=== PATIENT | female | born 1955 | race Caucasian/White ===

== ENCOUNTER 2016-11-13 18:36 | Emergency (ER) | payer MEDICARE, OTHER ==
[2016-11-13 19:51] LABS: BASOPHIL 0.4 % (0-2); EOSINOPHIL 2.2 % (0-5); HCT 36.7 % (37.0-47.0); HGB 12.4 g/dl (12.5-16.0); LYMPHOCYTE 23.6 % (15-48); MCH 29.7 pg (25.0-31.0); MCHC 33.8 g/dL (32.0-36.0); MONOCYTE 7.9 % (0-12); MPV 9.6 fL (6.0-9.5); NEUTROPHIL 65.9 % (41-80); PLT 269 K/uL (150-400); RBC 4.17 M/uL (4.20-5.40); RDW 14.5 % (11.5-14.0); WBC 8.4 K/uL (4.0-10.5)
[2016-11-13 20:12] LABS: INR 1.26 (0.9-1.2); PROTHROMBIN TIME 15.4 SECONDS (11.7-14.0); PTT 30.6 SECONDS (23.2-31.4)
[2016-11-13 20:13] LABS: D-DIMER 1.53 ug/mLFEU (0.00-0.41)
[2016-11-13 20:21] LABS: ALBUMIN 4.2 g/dL (3.5-5.0); BILIRUBIN - TOTAL 0.2 mg/dL (0.1-1.0); CREATININE 1.2 mg/dL (0.5-1.0); GLOBULIN (CALCULATION) 2.5 g/dL (2.2-4.2); MAGNESIUM 1.9 mg/dL (1.40-2.10); TOTAL PROTEIN 6.7 g/dL (6.4-8.3)
[2016-11-13 20:25] LABS: CKMB 5.41 ng/mL (0.97-4.94)
== END 2016-11-14 00:13 | disposition home or self-care (01) ==
LOC: FER 18:36
PROVIDERS: Emergency Medicine
DX: R07.9 Chest pain, unspecified (principal); R06.02 Shortness of breath; I10 Essential (primary) hypertension; E03.9 Hypothyroidism, unspecified; E27.1 Primary adrenocortical insufficiency; Z86.718 Personal history of other venous thrombosis and embolism; Z79.52 Long term (current) use of systemic steroids
CPT/HCPCS: 36415; 70450; 71010; 71275; 80053; 82550; 82553; 83735; 83874; 83880; 84484; 85025; 85379; 85610; 85730; 87804; 87899; 93005; J2270; Q9967

== ENCOUNTER 2016-12-09 18:24 | Emergency (ER) | payer MEDICARE, OTHER ==
[2016-12-09 19:45] LABS: BASOPHIL 0.3 % (0-2); EOSINOPHIL 3.6 % (0-5); HCT 35.1 % (37.0-47.0); HGB 11.4 g/dl (12.5-16.0); LYMPHOCYTE 28.1 % (15-48); MCH 29.3 pg (25.0-31.0); MCHC 32.5 g/dL (32.0-36.0); MCV 90.2 fL (78.0-100.0); MONOCYTE 7.9 % (0-12); MPV 9.9 fL (6.0-9.5); NEUTROPHIL 60.1 % (41-80); PLT 250 K/uL (150-400); RBC 3.89 M/uL (4.20-5.40); RDW 14.4 % (11.5-14.0); WBC 6.6 K/uL (4.0-10.5)
[2016-12-09 20:00] LABS: BILIRUBIN - TOTAL 0.2 mg/dL (0.1-1.0); GLOBULIN (CALCULATION) 2.4 g/dL (2.2-4.2); POTASSIUM 3.4 mmol/L (3.5-5.1); TOTAL PROTEIN 6.4 g/dL (6.4-8.3)
== END 2016-12-09 23:30 | disposition home or self-care (01) ==
LOC: FER 18:24
PROVIDERS: Emergency Medicine
DX: R53.83 Other fatigue (principal); R07.9 Chest pain, unspecified; R06.02 Shortness of breath; F32.9 Major depressive disorder, single episode, unspecified; I48.91 Unspecified atrial fibrillation; E03.9 Hypothyroidism, unspecified; Z79.899 Other long term (current) drug therapy; Z79.01 Long term (current) use of anticoagulants
CPT/HCPCS: 36415; 71010; 71275; 80053; 84443; 84484; 85025; 85379; 93005; J2270; Q9967

== ENCOUNTER 2020-12-22 19:37 | Emergency (ER) | payer MEDICARE, OTHER ==
[~2020-12-22 19:37] MED LIST: ABILIFY5 MG PO; ATIVAN1 MG PO; AUGMENTIN 875-1 EACH PO; B COMPLEX1 EACH PO; BENTYL10 MG PO; BIOTIN5000 MC1 PO; BIOTIN5000 MCG PO; CYMBALTA 30MG C30 MG PO; DIFLUCAN100 MG PO; FIORICET1 EACH PO; FLONASE ALLER15.8 ML; FLORINEF0.1 MG PO; FOLIC ACID1 MG PO; HYDROCORTISONE10 M1 PO; KLOR-CON M20 T20 MEQ PO; LEVAQUIN500 MG PO; LIPITOR40 MG PO; MAGNESIUM30 MG PO; METFORMIN HCL500 MG PO; NATURE-THROID65 MG PO; NITROQUIK SL0.4 MG SL; NORCO 5-325 TA1 EACH PO; NORVASC2.5 M1 PO; NORVASC5 MG PO; ONDANSETRON ODT4 MG SL; PERCOCET 10-321 EACH PO; PERCOCET 5-3251 EACH PO; PROPRANOLOL HCL80 M1 PO; PROTONIX 40MG T40 MG PO; RELPAX40 MG PO; REQUIP1 MG PO; SYNTHROID100 MCG PO; TEGRETOL200 MG PO; TOPAMAX100 MG PO; TOPAMAX50 MG PO; TOPROL XL 25MG25 MG PO; TRESIBA100 UNIT/1 SC; VICODIN 10/3251 EACH PO; VITAMIN B-121000 MC1 PO; VITAMIN B-650 MG PO; VITAMIN B122500 MC1 PO; XARELTO10 MG PO; ZOLOFT100 MG PO
[2020-12-22 20:27] LABS: BASOPHIL 0.4 % (0-2); EOSINOPHIL 2.1 % (0-5); HCT 34.3 % (37.0-47.0); HGB 11.4 g/dl (12.5-16.0); LYMPHOCYTE 49.8 % (15-48); MCH 30.5 pg (25.0-31.0); MCHC 33.2 g/dL (32.0-36.0); MCV 91.7 fL (78.0-100.0); MONOCYTE 6.6 % (0-12); MPV 9.6 fL (6.0-9.5); NEUTROPHIL 40.9 % (41-80); NRBC 0; PLT 254 K/uL (150-400); RBC 3.74 M/uL (4.20-5.40); RDW 14.2 % (11.5-14.0); WBC 9.1 K/uL (4.0-10.5)
[2020-12-22 20:32] LABS: TOTAL CELL COUNT 100
[2020-12-22 20:39] LABS: ALBUMIN 3.4 g/dL (3.4-5.0); BASOPHIL(M) 0 % (0-2); BILIRUBIN - TOTAL 0.3 mg/dL (0.2-1.0); BUN/CREAT RATIO (CALC) 18.1 RATIO; CREATININE 1.05 mg/dL (0.51-0.95); EOSINOPHIL(M) 3 % (0-5); GLOBULIN (CALCULATION) 2.8 g/dL; LYMPHOCYTE(M) 49 % (15-48); MAGNESIUM 2.1 mg/dL (1.8-2.4); MONOCYTE(M) 5 % (0-12); NEUTROPHILS(M) 43 % (41-80); POTASSIUM 3.9 mmol/L (3.5-5.1); TOTAL PROTEIN 6.2 g/dL (6.4-8.2); VARIANT LYMPHOCYTE 0
[2020-12-22 20:40] LABS: PLATELET ESTIMATE NORMAL; PLATELET MORPHOLOGY NORMAL
[2020-12-22 20:45] LABS: LACTIC ACID 1.2 mmol/L (0.4-1.9)
[2020-12-22 21:27] LABS: BILIRUBIN NEGATIVE (NEGATIVE); BLOOD 1+ Ery/uL (NEGATIVE); CLARITY HAZY (CLEAR); COLOR YELLOW (YELLOW); GLUCOSE (U) NORMAL (NORMAL); LEUKOCYTES TRACE Leu/uL (NEGATIVE); NITRITE NEGATIVE (NEGATIVE); PROTEIN NEGATIVE (NEGATIVE); SPECIFIC GRAVITY 1.015 (1.001-1.030); UROBILINOGEN 0.2 mg/dL (0.2-1.0)
[2020-12-22 21:34] LABS: BACTERIA 2+
[2020-12-22 21:45] LABS: CORONAVIRUS 2019 SARS-COV-2 NEGATIVE (NEGATIVE); INFLUENZA A NAA NEGATIVE (NEGATIVE)
== END 2020-12-23 04:40 | disposition other institution (70) ==
LOC: FER 19:37
PROVIDERS: Emergency Medicine Emergency Medical Services
DX: N13.6 Pyonephrosis (principal); R53.1 Weakness; E27.1 Primary adrenocortical insufficiency; R07.9 Chest pain, unspecified; I48.91 Unspecified atrial fibrillation; E78.5 Hyperlipidemia, unspecified; I10 Essential (primary) hypertension; Z87.19 Personal history of other diseases of the digestive system; Z90.49 Acquired absence of other specified parts of digestive tract; Z90.710 Acquired absence of both cervix and uterus; Z88.8 Allergy status to other drugs, medicaments and biological substances; Z88.5 Allergy status to narcotic agent; Z88.1 Allergy status to other antibiotic agents; Z20.822 Contact with and (suspected) exposure to COVID-19
CPT/HCPCS: 36415; 71045; 80053; 81001; 82024; 82533; 83605; 83735; 84145; 84484; 87040; 87088; 93005; J0696; J1885; J2270; J2405; J7030; U0002

== ENCOUNTER 2021-12-03 19:14 | Emergency (ER) | payer MEDICARE, OTHER ==
[2021-12-03 19:35] LABS: BASOPHIL 0.3 % (0-2); EOSINOPHIL 1.9 % (0-7); HCT 33.4 % (37.0-47.0); HGB 10.9 g/dl (12.5-16.0); MCH 29.5 pg (25.0-31.0); MCHC 32.6 g/dL (32.0-36.0); MCV 90.3 fL (78.0-100.0); MONOCYTE 6.9 % (0-12); MPV 9.5 fL (6.0-9.5); NEUTROPHIL 28.9 % (41-80); NRBC 0; PLT 204 K/uL (150-400); RDW 15.1 % (11.5-14.0); WBC 7.7 K/uL (4.0-10.5)
[2021-12-03 19:39] LABS: LYMPHOCYTE 61.9 % (15-48)
[2021-12-03 19:45] LABS: INR 1.27 (0.9-1.2); PROTHROMBIN TIME 15.2 SECONDS (11.8-13.4)
[2021-12-03 19:47] LABS: D-DIMER 0.37 ug/mLFEU (0.00-0.41)
[2021-12-03 20:00] LABS: ALBUMIN 3.3 g/dL (3.4-5.0); BILIRUBIN - TOTAL 0.3 mg/dL (0.2-1.0); BUN/CREAT RATIO (CALC) 12.1 RATIO; CREATININE 1.07 mg/dL (0.51-0.95); MAGNESIUM 1.6 mg/dL (1.8-2.4); POTASSIUM 3.1 mmol/L (3.5-5.1); TOTAL PROTEIN 6.3 g/dL (6.4-8.2)
[2021-12-03 22:38] LABS: BILIRUBIN NEGATIVE (NEGATIVE); BLOOD 1+ Ery/uL (NEGATIVE); CLARITY CLEAR (CLEAR); COLOR YELLOW (YELLOW); GLUCOSE (U) NORMAL (NORMAL); LEUKOCYTES NEGATIVE Leu/uL (NEGATIVE); NITRITE NEGATIVE (NEGATIVE); PROTEIN NEGATIVE (NEGATIVE); UROBILINOGEN 0.2 mg/dL (0.2-1.0)
[2021-12-03 23:01] LABS: AMORPHOUS URATES CRYSTALS LARGE; BACTERIA TRACE; URINARY WBC RARE
[2021-12-04] MEDS ORDERED: FLOMAX0.4 MG PO (04:12)
[2021-12-04] MEDS ORDERED: OXY-IR 5MG5 MG PO (04:12)
[2021-12-04] MEDS ORDERED: ONDANSETRON ODT4 MG PO (04:12)
== END 2021-12-04 06:30 | disposition home or self-care (01) ==
LOC: FER 19:14
PROVIDERS: Emergency Medicine
DX: N13.2 Hydronephrosis with renal and ureteral calculous obstruction (principal); R07.89 Other chest pain; I48.91 Unspecified atrial fibrillation; I50.9 Heart failure, unspecified; E11.9 Type 2 diabetes mellitus without complications; Z88.2 Allergy status to sulfonamides; Z88.8 Allergy status to other drugs, medicaments and biological substances; Z20.822 Contact with and (suspected) exposure to COVID-19
CPT/HCPCS: 36415; 71275; 80053; 81001; 82024; 82533; 83735; 83880; 84443; 84484; 85025; 85379; 85610; 93005; J1100; J1170; J1642; J1885; J2270; J2405; J3475; J3480; J7030; J7050; Q9967; U0002

== ENCOUNTER 2021-12-07 16:46 | Emergency (ER) | payer MEDICARE, OTHER ==
[~2021-12-07 16:46] MED LIST changes: +FLOMAX0.4 MG PO; +ONDANSETRON ODT4 MG PO; +OXY-IR 5MG5 MG PO
[2021-12-07 17:34] LABS: BASOPHIL 0.3 % (0-2); HCT 33.5 % (37.0-47.0); MCH 29.7 pg (25.0-31.0); MCHC 32.8 g/dL (32.0-36.0); MCV 90.5 fL (78.0-100.0); MONOCYTE 6.3 % (0-12); MPV 9.3 fL (6.0-9.5); NEUTROPHIL 43.1 % (41-80); NRBC 0; PLT 196 K/uL (150-400); RDW 15.1 % (11.5-14.0); WBC 6.6 K/uL (4.0-10.5)
[2021-12-07 17:52] LABS: BUN/CREAT RATIO (CALC) 16.9 RATIO; CREATININE 0.77 mg/dL (0.51-0.95); POTASSIUM 3.1 mmol/L (3.5-5.1)
[2021-12-07 19:03] LABS: BILIRUBIN NEGATIVE (NEGATIVE); BLOOD 2+ Ery/uL (NEGATIVE); CLARITY HAZY (CLEAR); COLOR YELLOW (YELLOW); GLUCOSE (U) NORMAL (NORMAL); LEUKOCYTES 2+ Leu/uL (NEGATIVE); NITRITE POSITIVE (NEGATIVE); PROTEIN NEGATIVE (NEGATIVE); SPECIFIC GRAVITY 1.015 (1.001-1.030); UROBILINOGEN 0.2 mg/dL (0.2-1.0)
[2021-12-07 19:10] LABS: BACTERIA 4+; URINARY WBC 20-50
[2021-12-07] MEDS ORDERED: BACTRIM DS TAB1 EACH PO (19:49)
[2021-12-07] MEDS ORDERED: K-TAB ER20 MEQ PO (19:49)
== END 2021-12-07 20:20 | disposition home or self-care (01) ==
LOC: FER 16:46
PROVIDERS: Nurse Practitioner Family
DX: R07.89 Other chest pain (principal); E87.6 Hypokalemia; N39.0 Urinary tract infection, site not specified; I13.0 Hypertensive heart and chronic kidney disease with heart failure and stage 1 through stage 4 chronic kidney disease, or unspecified chronic kidney disease; N18.30 Chronic kidney disease, stage 3 unspecified; I50.9 Heart failure, unspecified; Z88.5 Allergy status to narcotic agent; Z88.8 Allergy status to other drugs, medicaments and biological substances; Z88.1 Allergy status to other antibiotic agents
CPT/HCPCS: 36415; 71045; 80048; 81001; 84484; 85025; 93005; J1642

== ENCOUNTER 2022-04-08 18:31 | Emergency (ER) | payer MEDICARE, OTHER ==
[~2022-04-08 18:31] MED LIST changes: +BACTRIM DS TAB1 EACH PO; +K-TAB ER20 MEQ PO
[2022-04-08 19:15] LABS: BASOPHIL 0.6 % (0-2); EOSINOPHIL 2.6 % (0-7); HCT 33.2 % (37.0-47.0); LYMPHOCYTE 60.5 % (15-48); MCH 30.3 pg (25.0-31.0); MCHC 33.1 g/dL (32.0-36.0); MCV 91.5 fL (78.0-100.0); MONOCYTE 6.5 % (0-12); MPV 9.3 fL (6.0-9.5); NEUTROPHIL 29.6 % (41-80); NRBC 0; PLT 192 K/uL (150-400); RBC 3.63 M/uL (4.20-5.40); RDW 14.2 % (11.5-14.0)
[2022-04-08 19:16] LABS: WBC 6.6 K/uL (4.0-10.5)
[2022-04-08 19:42] LABS: ALBUMIN 3.1 g/dL (3.4-5.0); BILIRUBIN - TOTAL 0.4 mg/dL (0.2-1.0); BUN/CREAT RATIO (CALC) 17.7 RATIO; CREATININE 0.96 mg/dL (0.51-0.95); GLOBULIN (CALCULATION) 2.7 g/dL; POTASSIUM 3.2 mmol/L (3.5-5.1); TOTAL PROTEIN 5.8 g/dL (6.4-8.2)
[2022-04-08 20:38] LABS: BILIRUBIN NEGATIVE (NEGATIVE); BLOOD 1+ Ery/uL (NEGATIVE); COLOR YELLOW (YELLOW); GLUCOSE (U) NORMAL (NORMAL); LEUKOCYTES 1+ Leu/uL (NEGATIVE); NITRITE NEGATIVE (NEGATIVE); PROTEIN NEGATIVE (NEGATIVE); UROBILINOGEN 0.2 mg/dL (0.2-1.0); pH 6.5 (5.0-9.0)
[2022-04-08 20:44] LABS: BACTERIA 2+; CLARITY SLIGHTLY HAZY (CLEAR)
[2022-04-08 20:45] LABS: CALCIUM OXALATE CRYSTALS TRACE
== END 2022-04-08 22:22 | disposition home or self-care (01) ==
LOC: FER 18:31
PROVIDERS: Emergency Medicine
DX: R07.89 Other chest pain (principal); R00.2 Palpitations; I10 Essential (primary) hypertension; E11.9 Type 2 diabetes mellitus without complications; J44.9 Chronic obstructive pulmonary disease, unspecified; Z88.1 Allergy status to other antibiotic agents; Z88.8 Allergy status to other drugs, medicaments and biological substances; Z20.822 Contact with and (suspected) exposure to COVID-19
CPT/HCPCS: 36415; 71046; 80053; 81001; 82553; 84443; 84484; 85025; 85379; 93005; J1642; J7030; U0002

== ENCOUNTER 2022-05-25 16:10 | Emergency (ER) | payer MEDICARE, OTHER ==
[2022-05-25 17:12] LABS: BILIRUBIN 2+ mg/dL (NEGATIVE); BLOOD 3+ Ery/uL (NEGATIVE); CLARITY CLEAR (CLEAR); COLOR YELLOW (YELLOW); GLUCOSE (U) NORMAL (NORMAL); LEUKOCYTES 3+ Leu/uL (NEGATIVE); NITRITE POSITIVE (NEGATIVE); PROTEIN 2+ mg/dL (NEGATIVE); SPECIFIC GRAVITY 1.015 (1.001-1.030)
[2022-05-25 17:13] LABS: BASOPHIL 0.5 % (0-2); EOSINOPHIL 0.6 % (0-7); HCT 35.6 % (37.0-47.0); HGB 11.5 g/dl (12.5-16.0); LYMPHOCYTE 42.7 % (15-48); MCH 29.3 pg (25.0-31.0); MCHC 32.3 g/dL (32.0-36.0); MCV 90.6 fL (78.0-100.0); MONOCYTE 4.1 % (0-12); MPV 9.4 fL (6.0-9.5); NEUTROPHIL 51.9 % (41-80); NRBC 0; PLT 218 K/uL (150-400); RBC 3.93 M/uL (4.20-5.40); RDW 13.9 % (11.5-14.0); WBC 8.5 K/uL (4.0-10.5)
[2022-05-25 17:40] LABS: BUN/CREAT RATIO (CALC) 11.5 RATIO; CREATININE 1.31 mg/dL (0.51-0.95); POTASSIUM 4.6 mmol/L (3.5-5.1)
[2022-05-25 17:40] LABS: BACTERIA 3+; URINARY RBC 20-50; URINARY WBC 20-50
[2022-05-25 17:41] LABS: AMORPHOUS PHOSPHATE CRYSTALS MODERATE
== END 2022-05-26 02:30 | disposition home or self-care (01) ==
LOC: FER 16:10
PROVIDERS: Emergency Medicine
DX: N13.0 Hydronephrosis with ureteropelvic junction obstruction (principal); N39.0 Urinary tract infection, site not specified; E11.9 Type 2 diabetes mellitus without complications; I10 Essential (primary) hypertension; Z88.1 Allergy status to other antibiotic agents; Z88.8 Allergy status to other drugs, medicaments and biological substances
CPT/HCPCS: 36415; 80048; 81001; 85025; 87088; J0696; J1170; J1720; J2405; J7030

== ENCOUNTER 2022-06-03 19:56 | Emergency (ER) | payer MEDICARE, OTHER ==
[~2022-06-03] VITALS: Ht 152.4 cm; Wt 85.3 kg
[2022-06-03 20:54] LABS: BASOPHIL 0.4 % (0-2); EOSINOPHIL 1.8 % (0-7); HCT 32.5 % (37.0-47.0); HGB 10.8 g/dl (12.5-16.0); LYMPHOCYTE 58.8 % (15-48); MCH 29.5 pg (25.0-31.0); MCHC 33.2 g/dL (32.0-36.0); MCV 88.8 fL (78.0-100.0); MONOCYTE 7.4 % (0-12); MPV 9.4 fL (6.0-9.5); NEUTROPHIL 31.6 % (41-80); NRBC 0; PLT 211 K/uL (150-400); RBC 3.66 M/uL (4.20-5.40); RDW 14.6 % (11.5-14.0); WBC 7.2 K/uL (4.0-10.5)
[2022-06-03 21:12] LABS: ALBUMIN 3.4 g/dL (3.4-5.0); BILIRUBIN - TOTAL 0.5 mg/dL (0.2-1.0); BUN/CREAT RATIO (CALC) 20.4 RATIO; CREATININE 1.08 mg/dL (0.51-0.95); GLOBULIN (CALCULATION) 3.1 g/dL; POTASSIUM 4.2 mmol/L (3.5-5.1); TOTAL PROTEIN 6.5 g/dL (6.4-8.2)
[2022-06-03 21:19] LABS: BILIRUBIN 2+ mg/dL (NEGATIVE); BLOOD 3+ Ery/uL (NEGATIVE); CLARITY CLEAR (CLEAR); COLOR YELLOW (YELLOW); GLUCOSE (U) TRACE mg/dL (NORMAL); LEUKOCYTES 2+ Leu/uL (NEGATIVE); NITRITE POSITIVE (NEGATIVE); PROTEIN 3+ mg/dL (NEGATIVE); pH 6.5 (5.0-9.0)
[2022-06-03 21:36] LABS: BACTERIA 1+; URINARY RBC TNTC
[2022-06-03] MEDS ORDERED: BACTRIM DS TAB1 EACH PO (22:20)
[2022-06-03] MEDS ORDERED: DIFLUCAN 100MG100 MG PO (22:20)
== END 2022-06-03 23:55 | disposition home or self-care (01) ==
LOC: FER 19:56
PROVIDERS: Emergency Medicine
DX: N39.0 Urinary tract infection, site not specified (principal); I10 Essential (primary) hypertension; E11.9 Type 2 diabetes mellitus without complications; Z79.4 Long term (current) use of insulin; Z88.1 Allergy status to other antibiotic agents; Z88.8 Allergy status to other drugs, medicaments and biological substances; Z88.2 Allergy status to sulfonamides
CPT/HCPCS: 36415; 80053; 81001; 83605; 85025; 87077; 87088; J0696; J1642; J2270; J2405; J2550; J7030